=== PATIENT | male | born 1945 | race Caucasian/White ===

== ENCOUNTER → 2024-01-03 06:54 | Outpatient (REF) | payer OTHER, SELFPAY | LOC: PAVMRI 06:54 | PROVIDERS: ATTENDING PHYSICIAN Internal Medicine Geriatric Medicine; REFERRING PHYSICIAN Internal Medicine Endocrinology, Diabetes & Metabolism | DX: E11.9 Type 2 diabetes mellitus without complications (principal); I10 Essential (primary) hypertension; G45.9 Transient cerebral ischemic attack, unspecified; E78.2 Mixed hyperlipidemia; N40.1 Benign prostatic hyperplasia with lower urinary tract symptoms; M35.3 Polymyalgia rheumatica; I82.511 Chronic embolism and thrombosis of right femoral vein; G62.9 Polyneuropathy, unspecified; N52.01 Erectile dysfunction due to arterial insufficiency; M51.36 Other intervertebral disc degeneration, lumbar region; I11.9 Hypertensive heart disease without heart failure; I95.1 Orthostatic hypotension; Z13.31 Encounter for screening for depression; R47.81 Slurred speech | CPT/HCPCS: 70551 ==

== ENCOUNTER → 2024-06-16 14:37 | Outpatient (REF) | payer OTHER, SELFPAY | LOC: HWRAD 14:37 | PROVIDERS: ATTENDING PHYSICIAN Internal Medicine Endocrinology, Diabetes & Metabolism; FAMILY PHYSICIAN Internal Medicine Geriatric Medicine | DX: M81.0 Age-related osteoporosis without current pathological fracture (principal) | CPT/HCPCS: 77080 ==

== ENCOUNTER → 2024-10-09 09:33 | Outpatient (REF) | payer OTHER, SELFPAY | LOC: HWRAD 09:33 | PROVIDERS: ATTENDING PHYSICIAN Internal Medicine Geriatric Medicine | DX: E11.9 Type 2 diabetes mellitus without complications (principal); I10 Essential (primary) hypertension; G45.9 Transient cerebral ischemic attack, unspecified; E78.2 Mixed hyperlipidemia; N40.1 Benign prostatic hyperplasia with lower urinary tract symptoms; I82.511 Chronic embolism and thrombosis of right femoral vein; G62.9 Polyneuropathy, unspecified; N52.01 Erectile dysfunction due to arterial insufficiency; I11.9 Hypertensive heart disease without heart failure; Z13.31 Encounter for screening for depression; R13.19 Other dysphagia | CPT/HCPCS: 71046 ==

== ENCOUNTER → 2024-10-27 08:47 | Outpatient (REF) | payer OTHER, SELFPAY | LOC: RST 08:47 | PROVIDERS: ATTENDING PHYSICIAN Internal Medicine Geriatric Medicine | DX: E11.9 Type 2 diabetes mellitus without complications (principal); I10 Essential (primary) hypertension; G45.9 Transient cerebral ischemic attack, unspecified; E78.2 Mixed hyperlipidemia; N40.1 Benign prostatic hyperplasia with lower urinary tract symptoms; I82.511 Chronic embolism and thrombosis of right femoral vein; G62.9 Polyneuropathy, unspecified; N52.01 Erectile dysfunction due to arterial insufficiency; I11.9 Hypertensive heart disease without heart failure; Z13.31 Encounter for screening for depression; R13.19 Other dysphagia | CPT/HCPCS: 74221; 74230; 92611 ==